=== PATIENT | female | born 1930 | race Caucasian/White ===

== ENCOUNTER 2017-05-23 20:40 | Inpatient (IN) | payer OTHER, MEDICARE ==
[~2017-05-23] VITALS: Ht 157.5 cm; Wt 62.2 kg
[2017-05-23 20:50] VITALS: Ht 157.5 cm; Wt 62.2 kg
[2017-05-23 22:03] LABS: BASOPHIL % 0.3 % (0-2); PLATELET COUNT 338 x10^3mcL (130-400)
[2017-05-23 22:16] LABS: CALCIUM 8.5 mg/dL (8.5-10.1); CARBON DIOXIDE 26.5 mmol/L (21-32); CHLORIDE SERUM 96 mmol/L (98-107); CREATININE SERUM 0.7 mg/dL (0.6-1.0); GLUCOSE SERUM 132 mg/dL (74-106); POTASSIUM SERUM 3.8 mmol/L (3.5-5.1); SODIUM SERUM 131 mmol/L (136-145)
[2017-05-23 22:20] LABS: ALBUMIN 3.8 g/dL (3.4-5.0); ALKALINE PHOSPHATASE 144 U/L (46-116); ALT/SGPT 222 U/L (14-59); AMYLASE 66 U/L (25-115); AST/SGOT 352 U/L (15-37); BILIRUBIN TOTAL 1.1 mg/dL (0.20-1.00); LIPASE 256 IU/L (73-393); TOTAL PROTEIN, SERUM 7.3 g/dL (6.4-8.2)
[2017-05-24] MEDS ORDERED: METFORMIN HCL1000 MG PO (00:32)
[2017-05-24] MEDS ORDERED: OYSCO 500-VIT1 EACH PO (00:32)
[2017-05-24] MEDS ORDERED: ZESTRIL5 MG PO (00:33)
[2017-05-24] MEDS ORDERED: RANITIDINE15 MG/M1 PO (00:33)
[2017-05-24] MEDS ORDERED: GOOD SENSE OMEP20 MG PO (00:33)
[2017-05-24 01:07] LABS: MAGNESIUM 2.2 mg/dL (1.8-2.4); PHOSPHOROUS 3.2 mg/dL (2.5-4.9)
[2017-05-24 01:16] LABS: FREE T4 1.62 ng/dL (0.76-1.46); FREE THYROXINE INDEX 4.4 ug/dL (1.4-4.5); T4(THYROXINE) 11.8 ug/dL (4.7-13.3)
[2017-05-24 01:19] VITALS: BP 139/67
[2017-05-24 01:21] LABS: CHOLESTEROL/HDL RATIO 2.6
[2017-05-24 02:21] LABS: T3 TOTAL 0.88 ng/mL
[2017-05-24 03:22] LABS: microscopic required? YES; urine erythrocyte TRACE (NEGATIVE)
[2017-05-24 05:32] VITALS: BP 124/57
[2017-05-24 07:08] LABS: CALCIUM 8.4 mg/dL (8.5-10.1); CARBON DIOXIDE 23.7 mmol/L (21-32); CHLORIDE SERUM 99 mmol/L (98-107); CREATININE SERUM 0.7 mg/dL (0.6-1.0); GLUCOSE SERUM 120 mg/dL (74-106); MAGNESIUM 2.3 mg/dL (1.8-2.4); PHOSPHOROUS 3.2 mg/dL (2.5-4.9); POTASSIUM SERUM 4.5 mmol/L (3.5-5.1); SODIUM SERUM 132 mmol/L (136-145)
[2017-05-24 07:32] LABS: BASOPHIL % 0.3 % (0-2); PLATELET COUNT 306 x10^3mcL (130-400); RED CELL DISTRIBUTION WIDTH 12.8 % (11.5-14.5)
[2017-05-24 08:54] VITALS: BP 140/47
[2017-05-24 12:50] VITALS: BP 150/54
[2017-05-24 17:36] VITALS: BP 121/51
[2017-05-24 21:29] VITALS: BP 132/58
[2017-05-25 05:48] VITALS: BP 118/74
[2017-05-25 07:18] LABS: BASOPHIL % 0.6 % (0-2); PLATELET COUNT 329 x10^3mcL (130-400); RED CELL DISTRIBUTION WIDTH 13.2 % (11.5-14.5)
[2017-05-25 08:00] LABS: CALCIUM 8.5 mg/dL (8.5-10.1); CARBON DIOXIDE 26.3 mmol/L (21-32); CHLORIDE SERUM 102 mmol/L (98-107); CREATININE SERUM 0.8 mg/dL (0.6-1.0); GLUCOSE SERUM 116 mg/dL (74-106); MAGNESIUM 1.9 mg/dL (1.8-2.4); PHOSPHOROUS 2.9 mg/dL (2.5-4.9); POTASSIUM SERUM 4.2 mmol/L (3.5-5.1); SODIUM SERUM 137 mmol/L (136-145)
[2017-05-25 09:07] LABS: ALBUMIN 3.2 g/dL (3.4-5.0); BILIRUBIN DIRECT 0.44 mg/dL (0.0-0.2); BILIRUBIN TOTAL 0.98 mg/dL (0.20-1.00); TOTAL PROTEIN, SERUM 6.7 g/dL (6.4-8.2)
[2017-05-25 11:32] VITALS: BP 104/53
[2017-05-25 13:42] VITALS: BP 120/54
[2017-05-25 17:31] VITALS: BP 117/50
[2017-05-25 22:07] VITALS: BP 136/62
[2017-05-26 05:53] VITALS: BP 112/64
[2017-05-26 06:57] LABS: CALCIUM 8.6 mg/dL (8.5-10.1); CARBON DIOXIDE 26.7 mmol/L (21-32); CHLORIDE SERUM 101 mmol/L (98-107); CREATININE SERUM 0.8 mg/dL (0.6-1.0); GLUCOSE SERUM 124 mg/dL (74-106); MAGNESIUM 1.8 mg/dL (1.8-2.4); PHOSPHOROUS 3.2 mg/dL (2.5-4.9); POTASSIUM SERUM 4.1 mmol/L (3.5-5.1); SODIUM SERUM 132 mmol/L (136-145)
[2017-05-26 07:09] LABS: BASOPHIL % 0.4 % (0-2); PLATELET COUNT 324 x10^3mcL (130-400); RED CELL DISTRIBUTION WIDTH 13.5 % (11.5-14.5)
[2017-05-26] MEDS ORDERED: MAC100 PO (07:26)
[2017-05-26] MEDS ORDERED: LAC PO (07:26)
[2017-05-26] MEDS ORDERED: LIPI20 PO (07:28)
[2017-05-26] MEDS ORDERED: GOOD SENSE ASPI81 M3 PO (07:28)
[2017-05-26] MEDS ORDERED: MOT800 PO (07:29)
[2017-05-26 09:34] VITALS: BP 104/50
[2017-05-26 11:47] VITALS: BP 104/50
== END 2017-05-26 12:37 | disposition home or self-care (01) | DRG 263 ==
LOC: ED 20:40 → MU 05-24 00:02 → DU 05-24 00:02 → MU 05-25 07:46
PROVIDERS: Emergency Medicine; Family Medicine; Surgery
PROC: BF131ZZ Fluoroscopy of Gallbladder and Bile Ducts using Low Osmolar Contrast (ICD-10-PCS; 2017-05-25)
PROC: 0FT44ZZ Resection of Gallbladder, Percutaneous Endoscopic Approach (ICD-10-PCS; principal; 2017-05-25 08:00)
DX: K80.00 Calculus of gallbladder with acute cholecystitis without obstruction (principal); E11.65 Type 2 diabetes mellitus with hyperglycemia; E87.8 Other disorders of electrolyte and fluid balance, not elsewhere classified; N39.0 Urinary tract infection, site not specified; E87.1 Hypo-osmolality and hyponatremia; I10 Essential (primary) hypertension; K21.9 Gastro-esophageal reflux disease without esophagitis; M81.0 Age-related osteoporosis without current pathological fracture; R74.0 Nonspecific elevation of levels of transaminase and lactic acid dehydrogenase [LDH]; R31.9 Hematuria, unspecified
CPT/HCPCS: 82962; 83880; 84439; 94150; C1887; J0330; J0696; J1644; J1885; J1956; J2175; J2250; J2405; J3010; J3490; J7030; J7042; Q0092; Q9967